=== PATIENT | female | born 1990 | race Two or more races ===

== ENCOUNTER 2018-03-09 13:25 | Emergency (ER) | payer MEDICAID, OTHER ==
[~2018-03-09] VITALS: Ht 149.9 cm; Wt 65.8 kg
[2018-03-09 14:25] LABS: Urine Bacteria NONE SEEN /hpf (None Seen); Urine Blood Negative /uL (Negative); Urine Mucus FEW (None Seen); Urine Specific Gravity 1.017 (1.001-1.035); Urine WBC 18 /hpf (0 - 5)
[2018-03-09 14:43] VITALS: BP 104/66
== END 2018-03-09 15:20 | disposition home or self-care (01) ==
LOC: ER 13:25
DX: N39.0 Urinary tract infection, site not specified (principal)
CPT/HCPCS: 81001

== ENCOUNTER 2018-06-22 17:51 | Emergency (ER) | payer SELFPAY ==
[~2018-06-22] VITALS: Ht 154.9 cm; Wt 67.6 kg
[2018-06-22 18:45] LABS: Basophils # (auto) 0 uL; Basophils % (auto) 0.3 % (0.0-2.0); Eosinophils # (auto) 0.1 uL; Eosinophils % (auto) 1.4 % (0.0-7.0); Hematocrit 43.3 % (36.0-46.0); Lymphocytes # (auto) 1.7 uL; Lymphocytes % (auto) 16.7 % (10.0-50.0); Mean Corpuscular Hemoglobin 30.3 pg (28.0-32.0); Mean Corpuscular Hgb Conc. 34.5 g/dL (32.0-36.0); Mean Corpuscular Volume 87.9 fL (80.0-100.0); Monocytes # (auto) 0.7 uL; Monocytes % (auto) 6.5 % (0.0-12.0); Neutrophils # (auto) 7.6 uL; Neutrophils % (auto) 75.1 % (37.0-80.0); Nucleated Red Blood Cells % 0.1 %; Platelet Count (auto) 256 10^3/uL (140-450); Red Blood Cells 4.93 10^6/uL (4.0-5.20); Red Cell Distribution Width 13.4 % (11.8-14.3); White Blood Cell 10.1 10^3/uL (4.4-10.8)
[2018-06-22 18:55] LABS: Urine Bacteria NONE SEEN /hpf (None Seen); Urine Blood Negative /uL (Negative); Urine Mucus FEW (None Seen); Urine Specific Gravity 1.032 (1.001-1.035); Urine WBC 6 /hpf (0 - 5)
[2018-06-22 19:00] LABS: Albumin 3.9 g/dL (3.4-5.0); Potassium 3.6 mmol/L (3.5-5.1)
[2018-06-22 19:03] LABS: BUN/Creatinine Ratio 19.8; Bilirubin, Total 0.2 mg/dL (0.2-1.0); Total Protein 7.7 g/dL (6.4-8.2)
[2018-06-23] MEDS ORDERED: KETOROLAC TROMETH 30 MG/ML 1ML VIAL IV ONE (02:30)
[2018-06-23] MEDS ORDERED: cefTRIAXone 1GM/50ML D5W 50 ML IV ONE (02:30)
[2018-06-23 03:59] VITALS: BP 105/58
== END 2018-06-23 05:50 | disposition home or self-care (01) ==
LOC: ER 17:59
DX: K80.20 Calculus of gallbladder without cholecystitis without obstruction (principal); N39.0 Urinary tract infection, site not specified
CPT/HCPCS: 36415; 74176; 76830; 76856; 80053; 81001; 81025; 83690; 85025; 96365; 96375; 99284; J0696; J1885; J7030

== ENCOUNTER 2020-12-11 16:57 | Emergency (ER) | payer MEDICAID, OTHER ==
[~2020-12-11] VITALS: Ht 154.9 cm; Wt 65.8 kg
[2020-12-11] MEDS ORDERED: ONDANSETRON HCL 4 MG/2 ML VIAL IV ONE (20:30)
[2020-12-11] MEDS ORDERED: MORPHINE SULFATE 4 MG/ML SYR/VIAL IV ONE (20:30)
[2020-12-11 21:57] LABS: Basophils # (auto) 0 10 ^3/uL (0-0.2); Basophils % (auto) 0.4 % (0.0-2.0); Eosinophils # (auto) 0.2 10 ^3/uL (0-0.8); Eosinophils % (auto) 1.6 % (0.0-7.0); Hematocrit 46.5 % (36.0-46.0); Hemoglobin 15.8 g/dL (12.2-16.2); Lymphocytes # (auto) 2.1 10 ^3/uL (0.4-5.4); Lymphocytes % (auto) 19.5 % (10.0-50.0); Mean Corpuscular Hemoglobin 29.6 pg (28.0-32.0); Mean Corpuscular Volume 87.1 fL (80.0-100.0); Monocytes # (auto) 0.6 10 ^3/uL (0-1.3); Monocytes % (auto) 5.9 % (0.0-12.0); Neutrophils # (auto) 7.8 10 ^3/uL (1.6-8.6); Neutrophils % (auto) 72.6 % (37.0-80.0); Nucleated Red Blood Cells % 0.1 %; Red Blood Cells 5.34 10^6/uL (4.0-5.20); Red Cell Distribution Width 13.7 % (11.8-14.3); White Blood Cell 10.7 10^3/uL (4.4-10.8)
[2020-12-11 22:14] LABS: BUN/Creatinine Ratio 21.7; Calcium 9.4 mg/dL (8.5-10.1); Potassium 3.4 mmol/L (3.5-5.1)
[2020-12-12 03:10] VITALS: BP 110/62
== END 2020-12-12 03:58 | disposition home or self-care (01) ==
LOC: ER 16:57
DX: L73.9 Follicular disorder, unspecified (principal)
CPT/HCPCS: 36415; 56405; 80048; 83605; 84702; 85025

== ENCOUNTER 2021-05-10 22:58 | Emergency (ER) | payer OTHER ==
[~2021-05-10] VITALS: Ht 154.9 cm; Wt 67.6 kg
[2021-05-10 23:31] LABS: Basophils # (auto) 0.1 10 ^3/uL (0-0.2); Basophils % (auto) 1.3 % (0.0-2.0); Eosinophils # (auto) 0 10 ^3/uL (0-0.8); Hematocrit 43.3 % (36.0-46.0); Lymphocytes # (auto) 0.7 10 ^3/uL (0.4-5.4); Lymphocytes % (auto) 7.6 % (10.0-50.0); Mean Corpuscular Hemoglobin 29.1 pg (28.0-32.0); Mean Corpuscular Hgb Conc. 34.6 g/dL (32.0-36.0); Mean Corpuscular Volume 84.1 fL (80.0-100.0); Monocytes # (auto) 0.6 10 ^3/uL (0-1.3); Monocytes % (auto) 6.9 % (0.0-12.0); Neutrophils # (auto) 7.6 10 ^3/uL (1.6-8.6); Neutrophils % (auto) 84.2 % (37.0-80.0); Red Blood Cells 5.15 10^6/uL (4.0-5.20); Red Cell Distribution Width 13.9 % (11.8-14.3)
[2021-05-10 23:56] LABS: Albumin 3.7 g/dL (3.4-5.0); BUN/Creatinine Ratio 14.1; Calcium 8.2 mg/dL (8.5-10.1)
[2021-05-11] LABS: Bilirubin, Total 0.7 mg/dL (0.2-1.0); Total Protein 7.7 g/dL (6.4-8.2)
[2021-05-11 00:06] LABS: Potassium 2.8 mmol/L (3.5-5.1)
[2021-05-11] MEDS ORDERED: POTASSIUM CHL 20 Meq TABLET PO ONE (00:30)
[2021-05-11 01:00] VITALS: BP 107/81
== END 2021-05-11 01:12 | disposition home or self-care (01) ==
LOC: ER 22:58
DX: R10.13 Epigastric pain (principal); E87.6 Hypokalemia; R11.2 Nausea with vomiting, unspecified
CPT/HCPCS: 36415; 80053; 83690; 85025

== ENCOUNTER 2021-05-15 17:47 | Emergency (ER) | payer OTHER ==
[~2021-05-15] VITALS: Ht 154.9 cm; Wt 67.6 kg
[2021-05-15 20:32] VITALS: BP 114/63
[2021-05-15] MEDS ORDERED: KETOROLAC TROMETH 30 MG/ML 1ML VIAL IM ONE (20:45)
[2021-05-15] MEDS ORDERED: CEPH-322 PO (21:00)
[2021-05-15] MEDS ORDERED: IBUP600T27 PO (21:00)
== END 2021-05-15 21:25 | disposition home or self-care (01) ==
LOC: ER 17:48
DX: L02.411 Cutaneous abscess of right axilla (principal); Z79.1 Long term (current) use of non-steroidal anti-inflammatories (NSAID); Z79.899 Other long term (current) drug therapy
CPT/HCPCS: 96372; 99283; J1885

== ENCOUNTER 2021-05-28 17:09 | Emergency (ER) | payer OTHER ==
[~2021-05-28] VITALS: Ht 152.4 cm; Wt 68.0 kg
[~2021-05-28 17:09] MED LIST: CEPH-322 PO; IBUP600T27 PO
[2021-05-28 19:28] VITALS: BP 108/72
[2021-05-29] MEDS ORDERED: LIDOCAINE 1% HCL (LOCAL ANESTH.) INJ 20ML MDV IJ ONE (06:45)
[2021-05-29] MEDS ORDERED: NAPR500T31 PO (06:54)
[2021-05-29] MEDS ORDERED: CLIN300C8 PO (06:54)
== END 2021-05-29 07:14 | disposition home or self-care (01) ==
LOC: ER 17:13
DX: L02.411 Cutaneous abscess of right axilla (principal); L73.2 Hidradenitis suppurativa
CPT/HCPCS: 10060

== ENCOUNTER 2021-08-31 05:46 | Emergency (ER) | payer OTHER ==
[~2021-08-31] VITALS: Ht 154.9 cm; Wt 65.8 kg
[~2021-08-31 05:46] MED LIST changes: +CLIN300C8 PO; +NAPR500T31 PO
[2021-08-31 07:55] LABS: Basophils # (auto) 0 10 ^3/uL (0-0.2); Basophils % (auto) 0.2 % (0.0-2.0); Eosinophils # (auto) 0 10 ^3/uL (0-0.8); Eosinophils % (auto) 0.4 % (0.0-7.0); Hematocrit 45.7 % (36.0-46.0); Hemoglobin 15.4 g/dL (12.2-16.2); Lymphocytes # (auto) 0.8 10 ^3/uL (0.4-5.4); Lymphocytes % (auto) 9.4 % (10.0-50.0); Mean Corpuscular Hemoglobin 28.6 pg (28.0-32.0); Mean Corpuscular Hgb Conc. 33.7 g/dL (32.0-36.0); Mean Corpuscular Volume 84.9 fL (80.0-100.0); Monocytes # (auto) 0.4 10 ^3/uL (0-1.3); Monocytes % (auto) 5.1 % (0.0-12.0); Neutrophils % (auto) 84.9 % (37.0-80.0); Red Blood Cells 5.38 10^6/uL (4.0-5.20); White Blood Cell 8.3 10^3/uL (4.4-10.8)
[2021-08-31 08:34] LABS: Urine Bacteria NONE SEEN /hpf (None Seen); Urine Blood 3+ /uL (Negative); Urine Budding Yeast MANY /hpf (None Seen); Urine Mucus FEW (None Seen); Urine Specific Gravity 1.027 (1.001-1.035); Urine WBC 37 /hpf (0 - 5)
[2021-08-31 09:46] LABS: Albumin 4.4 g/dL (3.4-5.0); BUN/Creatinine Ratio 22.2; Calcium 8.5 mg/dL (8.5-10.1); Potassium 3.7 mmol/L (3.5-5.1)
[2021-08-31 09:51] LABS: Bilirubin, Total 0.6 mg/dL (0.2-1.0); Total Protein 7.9 g/dL (6.4-8.2)
[2021-08-31] MEDS ORDERED: NITR-87 PO (10:07)
[2021-08-31] MEDS ORDERED: IBU600T PO (10:07)
[2021-08-31 10:51] VITALS: BP 105/69
== END 2021-08-31 10:52 | disposition home or self-care (01) ==
LOC: ER 05:46
DX: K80.20 Calculus of gallbladder without cholecystitis without obstruction (principal); N39.0 Urinary tract infection, site not specified
CPT/HCPCS: 36415; 74176; 80053; 81001; 83690; 84702; 85025

== ENCOUNTER 2022-10-17 08:18 | Emergency (ER) | payer OTHER ==
[~2022-10-17] VITALS: Ht 154.9 cm; Wt 70.5 kg
[~2022-10-17 08:18] MED LIST changes: -CEPH-322 PO; +CEPH250C PO; +CLIN300C70 PO; -CLIN300C8 PO; +IBU600T PO; +IBUP-1454 PO; -IBUP600T27 PO; +NAPR-746 PO; -NAPR500T31 PO; +NITR-87 PO
[2022-10-17 09:28] VITALS: BP 115/92; PULSE 76; RESP 16; TEMP 97.6; O2SAT 99
[2022-10-17] MEDS ORDERED: IBUPROFEN 600 MG TAB PO ONE (10:30)
[2022-10-17] MEDS ORDERED: DexAMETHasone SOD PHOS 10MG/1ML VIAL INJ IM ONE (10:30)
== END 2022-10-17 10:57 | disposition home or self-care (01) ==
LOC: ER 08:18
DX: J06.9 Acute upper respiratory infection, unspecified (principal); Z79.1 Long term (current) use of non-steroidal anti-inflammatories (NSAID); Z79.899 Other long term (current) drug therapy
CPT/HCPCS: 96372; 99283; J1100

== ENCOUNTER 2023-02-27 07:46 | Emergency (ER) | payer OTHER ==
[~2023-02-27] VITALS: Ht 154.9 cm; Wt 68.4 kg
[2023-02-27 08:20] LABS: Basophils # (auto) 0 10 ^3/uL (0-0.2); Basophils % (auto) 0.3 % (0.0-2.0); Eosinophils # (auto) 0.1 10 ^3/uL (0-0.8); Eosinophils % (auto) 0.9 % (0.0-7.0); Hematocrit 46.9 % (36.0-46.0); Hemoglobin 15.4 g/dL (12.2-16.2); Lymphocytes # (auto) 1.4 10 ^3/uL (0.4-5.4); Mean Corpuscular Hemoglobin 28.5 pg (28.0-32.0); Mean Corpuscular Hgb Conc. 32.8 g/dL (32.0-36.0); Monocytes # (auto) 0.5 10 ^3/uL (0-1.3); Monocytes % (auto) 5.9 % (0.0-12.0); Neutrophils # (auto) 6.4 10 ^3/uL (1.6-8.6); Neutrophils % (auto) 75.9 % (37.0-80.0); Red Cell Distribution Width 13.9 % (11.8-14.3); White Blood Cell 8.5 10^3/uL (4.4-10.8)
[2023-02-27 08:30] LABS: Chloride 106 mmol/L (98-107); Potassium 3.3 mmol/L (3.5-5.1); Sodium 141 mmol/L (136-145)
[2023-02-27 08:31] LABS: Anion Gap 7 (5-15); Calcium 9.6 mg/dL (8.5-10.1); Carbon Dioxide 28 mmol/L (20-30)
[2023-02-27 08:36] LABS: BUN/Creatinine Ratio 12.7 (10.0-20.0); Blood Urea Nitrogen 9 mg/dL (9-23); Glucose 101 mg/dL (74-106)
[2023-02-27] MEDS ORDERED: POTASSIUM EFFERVESENT TAB 25 MEQ PO ONE (08:45)
[2023-02-27] MEDS ORDERED: DIPH2.5T73 PO (08:46)
[2023-02-27] MEDS ORDERED: CEPH250C PO (08:46)
[2023-02-27 09:05] VITALS: BP 115/70; PULSE 68; RESP 18; TEMP 97.4; O2SAT 100
[2023-02-27 10:31] LABS: Urine Bacteria NONE SEEN /hpf (None Seen); Urine Blood Negative /uL (Negative); Urine Clarity Clear (Clear); Urine Color Yellow (Yellow); Urine Mucus FEW (None Seen); Urine Protein, UAD 1+ (Negative); Urine Specific Gravity 1.034 (1.001-1.035); Urine Urobilinogen Normal (Negative); Urine WBC 2 /hpf (0 - 5)
== END 2023-02-27 09:09 | disposition home or self-care (01) ==
LOC: ER 07:46
DX: K52.9 Noninfective gastroenteritis and colitis, unspecified (principal); Z90.49 Acquired absence of other specified parts of digestive tract; Z79.1 Long term (current) use of non-steroidal anti-inflammatories (NSAID); Z79.2 Long term (current) use of antibiotics; Z79.899 Other long term (current) drug therapy
CPT/HCPCS: 36415; 80048; 81001; 85025